=== PATIENT | male | born 1960 | race Caucasian/White ===

== ENCOUNTER 2023-01-18 17:14 | Emergency (ER) | payer OTHER, SELFPAY ==
[2023-01-18 17:17] VITALS: BP 148/87; PULSE 97; RESP 18; TEMP 36.5; O2SAT 95; BMI 23.4
--- NOTE | 2023-01-18 17:27 | ED_ITS ---
HPI - Wound/Laceration General Time Seen by Provider: 17:27 Date Seen: 01/18/23 Chief Complaint: Laceration/Wound Stated Complaint: Cut on right hand base of the thumb Time Seen by Provider: 01/18/23 17:27 Source: patient and RN notes reviewed Mode of arrival: ambulatory Limitations: no limitations History of Present Illness HPI narrative: Tad is a very pleasant 62-year-old with tetanus in 2019 who comes to the emergency room for evaluation regarding an injury to the right thumb. Patient was noted to be using a surface grinder at home and it slipped causing a laceration over the 1st MCP dorsal surface on the right hand. Patient notes no difficulty with movement. He did put 2nd skin on this area as was initially bleeding and this did help. He has not taken anything for pain. His tetanus is up-to-date. Related Data Home Medications Medication Instructions Recorded Confirmed atorvastatin 10 mg tablet 10 mg PO DAILY 01/18/23 01/18/23 cholecalciferol (vitamin D3) 50 50 mcg PO DAILY 01/18/23 01/18/23 mcg (2,000 unit) capsule (Vitamin D3) levothyroxine 125 mcg tablet 125 mcg PO DAILY 01/18/23 01/18/23 (Synthroid) Allergies Allergy/AdvReac Type Severity Reaction Status Date / Time No Known Drug Allergies Allergy Verified 01/18/23 17:20 [facility] Social History Smoking Status: Former smoker What tobacco products do you use: cigarettes Smoking quit date/years: <= 15 years ago Do you use any of these nicotine containing products: None Second hand tobacco smoke exposure: No How often do you have a drink containing alcohol: 2-3 times a week How many standard drinks containing alcohol do you have on a typical day: 1 or 2 How often do you have six or more drinks on one occasion: Never AUDIT-C Alcohol total score: 3 Non-prescribed substance use: denies use Exam Narrative: Exam Narrative: Patient is noted to have sustained a 1.8 cm linear laceration vertically over the base of the thumb. This is over the dorsal surface, 1st metacarpophalangeal joint. Initially covered with new skin which I gently remove laceration is somewhat shallow compromising dermis on the very edges but then dives deep into the middle and there is a 4 mm area in the center of the laceration at which you can see underlying structures and the extensor tendon. The tendon itself appears to be intact. Patient has full strength with some extension and abduction. Distally sensation is intact. I do not see significant foreign body but hand is soiled. This area was noted to have new skin and this was removed the area was irrigated with normal saline and anesthetized with 1% lidocaine with epinephrine. In the center of the wound 2 deep sutures of 6 0 Vicryl were placed in interrupted fashion to pull the subcutaneous tissue together. On the surface 4 sutures of 5 0 Ethilon were placed in interrupted fashion to try and bring the skin edges together as much as possible. This was challenging as it does appear that some of the tissue has been avulsed. However the skin edges were brought fairly near each other. Patient tolerated procedure well. Const: Vital Signs, click to edit/add: Vital Signs - 24 hr 01/18/23 17:17 01/18/23 19:39 Temperature 97.7 F 97.7 F Pulse Rate [Pulse Oximeter] 97 97 Respiratory Rate 18 18 Blood Pressure [Ri ght Upper Arm] 148/87 H 148/87 H Pulse Oximetry 95 Oxygen Delivery Me thod Room Air Documenting provider has reviewed patient's vital signs: yes Course Vital Signs Vital signs: Initial Vital Signs Temperature 97.7 F 01/18/23 17:17 Temperature Source Temporal Artery Scan 01/18/23 17:17 Pulse Rate 97 01/18/23 17:17 Respiratory Rate 18 01/18/23 17:17 Blood Pressure 148/87 H 01/18/23 17:17 Blood Pressure Mean 107 01/18/23 17:17 Blood Pressure Position Sitting 01/18/23 17:17 Pulse Oximetry 95 01/18/23 17:17 Oxygen Delivery Method 01/18/23 17:17 Vital Signs Temperature 97.7 F 01/18/23 17:17 Pulse Rate 97 01/18/23 17:17 Respiratory Rate 18 01/18/23 17:17 Blood Pressure 148/87 H 01/18/23 17:17 Pulse Oximetry 95 01/18/23 17:17 Oxygen Delivery Method 01/18/23 17:17 Temperature 97.7 F 01/18/23 19:39 Pulse Rate 97 01/18/23 19:39 Respiratory Rate 18 01/18/23 19:39 Blood Pressure 148/87 H 01/18/23 19:39 Pulse Oximetry 95 01/18/23 17:17 Oxygen Delivery Method 01/18/23 17:17 MDM - Wound/Laceration MDM Narrative Medical decision making narrative: 1. Right thumb laceration repair-underlying structures were visualized and did not appear to be harmed. Patient had full motor and sensation. Recommend suture removal in 10 days time. Monitor for infection. Given the soiled nature of hands and deep nature with visualized structures underneath the subcutaneous tissue I would recommend Keflex 500 mg p.o. b.i.d. x5 days for wound prophylaxis. In addition recommend to patient to limit movement over the next 48 hours in an effort to let those tissue edges start to adhere to each other. Seek medical attention for fever, drainage, worsening symptoms. Bandage at this time. Leave open to air when he is sitting. Do not soak in water until sutures are removed but he may bathe and wash with soap and water and gently dab the sutures dry 2. Disposition-home with . Medical Records Attestation: I reviewed the patient's medical records. Discharge Plan Discharge Clinical Impression: Laceration Patient Disposition: Home, Self-Care Condition: Improved Additional Instructions: Suggest suture removal in 10 days. Limit motion over the next 48 hours in order to really allow those tissues to start to adhere to each other. Seek medical attention for redness, drainage, fever or signs of infection. Ibuprofen or Tylenol may be used for pain. Keflex, antibiotic, is suggested as infection prophylaxis. This will be given out via the [employer] medication machine. Prescriptions: No Action levothyroxine [Synthroid] 125 mcg tablet 125 mcg PO DAILY atorvastatin 10 mg tablet 10 mg PO DAILY cholecalciferol (vitamin D3) [Vitamin D3] 50 mcg (2,000 unit) capsule 50 mcg PO DAILY Follow Up/Referrals: Provider,Not a Local [Primary Care Provider] - Stand Alone Forms: [employer] Info Instructions
--- NOTE | 2023-01-18 17:49 | ED.NURSE ---
Wound irrigated with 250mL of normal saline per MD request.
[2023-01-18 19:39] VITALS: BP 148/87; PULSE 97; RESP 18; TEMP 36.5
== END 2023-01-18 19:35 | disposition home or self-care (01) ==
PROVIDERS: Emergency Provider Family Medicine
DX: S61.011A Laceration without foreign body of right thumb without damage to nail, initial encounter (principal); W31.89XA Contact with other specified machinery, initial encounter
CPT/HCPCS: 12001; 99283; 99284